=== PATIENT | male | born 1960 | race Hispanic/Latino ===

== ENCOUNTER 2018-06-23 07:10 | Emergency (ER) | payer OTHER ==
[2018-06-23 07:24] VITALS: O2SAT 98
--- NOTE | 2018-06-23 08:16 | ED PDOC ---
HPI: General Adult Time Seen by Provider: 06/23/18 07:29 Chief Complaint (Nursing): Rib Injury Chief Complaint (Provider): Rib Injury History Per: Patient History/Exam Limitations: no limitations Onset/Duration Of Symptoms: Hrs (x1 hour) Current Symptoms Are (Timing): Still Present Additional Complaint(s): Saravanan Pro is 57 year old male with a past medical history of hypothyroidism, who presents to the emergency department complaining of muscle pain in right upper chest area after lifting heavy equipment, associated with mild difficulty breathing, onset x1 hour ago. Patient states he has had right pectoral surgery x5 years ago however, he describes the pain being much less severe compared to then. He denies having any abdominal pain or any other medical complaints. PMD: No Provider Past Medical History Reviewed: Historical Data, Nursing Documentation, Vital Signs Vital Signs: Last Vital Signs Temp 98.2 F 06/23/18 07:23 Pulse 77 06/23/18 07:23 Resp 19 06/23/18 07:23 BP 130/87 06/23/18 07:23 Pulse Ox 98 06/23/18 07:23 - Medical History PMH: Hypothyroidism - Surgical History Other surgeries: right pectoral surgery. right hand surgery. left leg surgery - Family History Family History: States: Unknown Family Hx - Immunization History Hx Tetanus Toxoid Vaccination: No Hx Influenza Vaccination: No Hx Pneumococcal Vaccination: No - Home Medications Home Medications: Ambulatory Orders Medication Instructions Recorded Ibuprofen [Motrin Tab] 600 mg PO Q6 PRN #15 tab 06/23/18 - Allergies Allergies/Adverse Reactions: Allergies Allergy/AdvReac Type Severity Reaction Status Date / Time No Known Allergies Allergy Verified 06/23/18 07:28 Review of Systems ROS Statement: Except As Marked, All Systems Reviewed And Found Negative Respiratory: Positive for: Shortness of Breath (mild ) Gastrointestinal: Negative for: Abdominal Pain Physical Exam - Reviewed Nursing Documentation Reviewed: Yes Vital Signs Reviewed: Yes - Physical Exam Appears: Positive for: Non-toxic, No Acute Distress Head Exam: Positive for: ATRAUMATIC, NORMOCEPHALIC Skin: Positive for: Normal Color, Warm, Dry Eye Exam: Positive for: Normal appearance, EOMI Neck: Positive for: Normal, Painless ROM, Supple Cardiovascular/Chest: Positive for: Regular Rate, Rhythm. Negative for: Chest Non Tender (mild tenderness L chest wall/ L pectoralis/ extending to mid axillary costal), Other (bruit, ecchymosis ) Respiratory: Positive for: Normal Breath Sounds. Negative for: Respiratory Distress (able to speak clearly ), Other (subcutaneous emphysema) Gastrointestinal/Abdominal: Positive for: Normal Exam, Soft. Negative for: Tenderness Back: Positive for: Normal Inspection. Negative for: L CVA Tenderness, R CVA Tenderness, Vertebral Tenderness Extremity: Positive for: Normal ROM. Negative for: Pedal Edema, Deformity Neurologic/Psych: Positive for: Alert, Oriented (x3) - ECG O2 Sat by Pulse Oximetry: 98 (RA) Pulse Ox Interpretation: Normal Medical Decision Making Medical Decision Making: Time:07:49 Initial Impression: Severe Strain Initial Plan: --ECG --Ribs and chest LT [RAD] --Toradol 15 mg IM Ribs and Chest X-Ray Findings: LEFT RIBS: No acute fracture or focal lesion visualized. LUNGS: Clear. PLEURA: No pneumothorax or pleural fluid. CARDIOVASCULAR: Normal sized heart. No pulmonary vascular congestion. OTHER FINDINGS: None. IMPRESSION: Unremarkable radiographs of the chest and left ribs. No acute left rib fracture. Given sling for comfort, Rx motrin, followup ortho for MRI if symptoms persist r/o pectoralis tear. Vitals stable, comfortable on re-eval. Scribe Attestation: Documented by Joe Mcknight, acting as a scribe for Alber Adams III, DO. Provider Scribe Attestation: All medical record entries made by the Scribe were at my direction and pe rsonally dictated by me. I have reviewed the chart and agree that the record accurately reflects my personal performance of the history, physical exam, medical decision making, and the department course for this patient. I have also personally directed, reviewed, and agree with the discharge instructions and disposition. Disposition - Clinical Impression Clinical Impression: Pectoralis muscle strain - Patient ED Disposition Is Patient to be Admitted: No Counseled Patient/Family Regarding: Studies Performed, Diagnosis, Need For Followup, Rx Given - Disposition Referrals: Marcus Mcdonnell III, MD [Staff Provider] - Disposition: Routine/Home Disposition Time: 09:45 Condition: FAIR Additional Instructions: Followup with orthopedist for further testing and possible MRI of pectoris muscle to rule-out tear. Take medication as directed. Return to ER for any worse or new symptoms. Chest/Rib XRays and EKG performed today without acute abnormality. Prescriptions: Ibuprofen [Motrin Tab] 600 mg PO Q6 PRN #15 tab PRN Reason: Pain, Moderate (4-7) Instructions: Muscle Strain (DC) Forms: [employer] (Portuguese)
--- NOTE | 2018-06-23 09:22 | RAD ---
Date of service: 06/23/2018 PROCEDURE: Radiographs of the Chest and Left Ribs. HISTORY: L chest wall pain COMPARISON: None available. TECHNIQUE: Frontal radiograph of the chest and multiple oblique radiographs of the left ribs were obtained. FINDINGS: LEFT RIBS: No acute fracture or focal lesion visualized. LUNGS: Clear. PLEURA: No pneumothorax or pleural fluid. CARDIOVASCULAR: Normal sized heart. No pulmonary vascular congestion. OTHER FINDINGS: None. IMPRESSION: Unremarkable radiographs of the chest and left ribs. No acute left rib fracture.
[2018-06-23 10:00] VITALS: BP 118/70; PULSE 70; RESP 20; TEMP 98
--- NOTE | 2018-06-23 14:44 | CARD ---
APPROVED REPORT Date of service: 06/23/2018 EKG Measurement Heart [id number] <Conclusion> Normal sinus rhythm Normal ECG
== END 2018-06-23 09:49 | disposition home or self-care (01) ==
LOC: H.ER 07:10
DX: S29.011A Strain of muscle and tendon of front wall of thorax, initial encounter (principal); X50.9XXA Other and unspecified overexertion or strenuous movements or postures, initial encounter; Y99.0 Civilian activity done for income or pay; E03.9 Hypothyroidism, unspecified
CPT/HCPCS: 71101; 93005; 96372; 99284; J1885